=== PATIENT | male | born 1980 | race Caucasian/White ===

== ENCOUNTER 2017-02-10 06:23 | Emergency (ER) | payer OTHER ==
[~2017-02-10] VITALS: Ht 175.3 cm; Wt 71.6 kg
[2017-02-10 06:28] VITALS: Ht 175.3 cm; Wt 71.6 kg
[2017-02-10] MEDS ORDERED: DIAZEPAM 5MG TAB PO STA ×2 (06:33→11:03)
[2017-02-10] MEDS ORDERED: SODIUM CHLORIDE 0.9% 1000ML 1,000 ML IV STA (06:33)
[2017-02-10] MEDS ORDERED: ONDANSETRON INJ 2 MG/ML 2 ML VIAL IV STA (06:41)
[2017-02-10] MEDS ORDERED: MULTI-VITAMIN INFUSION INJ 10 ML, THIAMINE HCL INJ 100 MG, FoLIC ACID INJ 1 MG in SODIU... IV ONE (06:45)
[2017-02-10] MEDS ORDERED: PRLSR20 PO (06:46)
--- NOTE | 2017-02-10 06:49 | EMERGENCY ROOM VISIT NOTE ---
History Report prepared by Afsaneh: Rohan Matthew Under the Supervision of: Dr. Patience Marcum M.D. First contact with patient: 06:33 Chief Complaint: DETOX REQUEST Stated Complaint: ALCOHOL WITHDRAWAL History of Present Illness The patient is a diaphoretic 36 year old male who presents to the Emergency Room with complaints of a persistent alcohol withdrawal that started this morning. He says that he is not an alcoholic but usually drinks about a fifth on the days that he drinks. The patient states that he drinks most days, and his significant other agrees. The patient notes that when he does drink, he binges for a few days in a row. The patient says that he drank last night and then tried to have one drink a couple hours ago in order to calm his "heart down ". He says that the one drink this morning did not make him feel any better. The patient's significant other says that the patient vomited afterwards. The patient denies any recent illnesses. He says that he "does not want to go home and from alcohol withdrawal". He states that he uses marijuana but no other recreational drugs. Source of History: patient, spouse/significant other Onset: This morning Position: other (global - alcohol withdrawal) Symptom Intensity: usually drinks a fifth on days he drinks Timing: other (persistent) Associated Symptoms: + diaphoresis, + vomiting Note: Associated symptoms: Discomfort due to alcohol withdrawal. Denies recent illnesses. Review of Systems See HPI for pertinent positives & negatives. A total of 10 systems reviewed and were otherwise negative. Past Medical & Surgical Medical Problems: (1) Alcohol intoxication (2) Explosive personality disorder (3) GERD (gastroesophageal reflux disease) Surgical Problems: (1) S/P tonsillectomy Social History Problems: (1) Alcohol abuse Family History FH: diabetes mellitus FATHER Social History Smoking Status: Never Smoker Alcohol Use: heavy Drug Use: marijuana Marital Status: single Occupation Status: unemployed Current/Historical Medications Scheduled Omeprazole (Prilosec), 20 MG PO DAILY Allergies Coded Allergies: No Known Allergies (Unverified , 02/10/17) Physical Exam Vital Signs Date Time Temp Pulse Resp B/P (MAP) Pulse Ox O2 Delivery O2 Flow Rate FiO2 02/10/17 11:40 87 16 106/72 02/10/17 10:53 100 16 113/69 02/10/17 10:46 92 02/10/17 09:54 93 16 109/68 02/10/17 08:48 36.4 78 16 94/62 02/10/17 08:02 94 16 101/62 02/10/17 07:16 88 16 106/74 97 Room Air 02/10/17 06:49 35.6 02/10/17 06:44 91 02/10/17 06:28 115 18 109/66 95 Room Air Physical Exam Vital signs reviewed. General: Mildly hypotensive 36 year old male, who seems uncomfortable. HEENT: No scleral icterus, PERRLA, neck supple. Atraumatic. Cardiovascular: Regular rate and rhythm, no extra sounds. Pulmonary: Clear to auscultation bilaterally, normal work of breathing. Abdomen: Soft, nontender, nondistended, positive bowel sounds. Musculoskeletal: Atraumatic, no peripheral edema. Neurologic: Patient awake alert and oriented x 3, full strength in all 4 extremities. Cranial nerves 2 through 12 grossly intact. Skin: Diaphoretic and pale. Medical Decision & Procedures ER Provider Diagnostic Interpretation: X-ray results as stated below per interpretation by me and the radiologist: CHEST ONE VIEW PORTABLE CLINICAL HISTORY: 36 years-old Male presenting with sepsis. TECHNIQUE: Portable upright AP view of the chest was obtained. COMPARISON: None. FINDINGS: Cardiomediastinal silhouette normal. Lungs and pleural spaces clear. Osseous structures and upper abdomen normal. IMPRESSION: 1. No acute cardiopulmonary disease. Electronically signed by: Harmeet Quiroz M.D. 02/10/2017 8:17 AM Dictated Date/Time: 02/10/2017 8:14 AM Laboratory Results 02/10/17 06:50 Red Blood Count 5.10, Mean Corpuscular Volume 90.6, Mean Corpuscular Hemoglobin 30.4, Mean Corpuscular Hemoglobin Concent 33.5, Mean Platelet Volume 9.3, Neutrophils (%) (Auto) 56.0, Lymphocytes (%) (Auto) 35.8, Monocytes (%) (Auto) 5.3, Eosinophils (%) (Auto) 1.5, Basophils (%) (Auto) 0.8, Neutrophils # (Auto) 10.39, Lymphocytes # (Auto) 6.65, Monocytes # (Auto) 0.98, Eosinophils # (Auto) 0.28, Basophils # (Auto) 0.14 02/10/17 06:50 Test 8/3/17 06:50 02/10/17 08:10 02/10/17 10:26 White Blood Count 18.55 K/uL (4.8-10.8) Red Blood Count 5.10 M/uL (4.7-6.1) Hemoglobin 15.5 g/dL (14.0-18.0) Hematocrit 46.2 % (42-52) Mean Corpuscular Volume 90.6 fL (80-100) Mean Corpuscular Hemoglobin 30.4 pg (25-34) Mean Corpuscular Hemoglobin Concent 33.5 g/dl (32-36) Platelet Count 339 K/uL (130-400) Mean Platelet Volume 9.3 fL (7.4-10.4) Neutrophils (%) (Auto) 56.0 % Lymphocytes (%) (Auto) 35.8 % Monocytes (%) (Auto) 5.3 % Eosinophils (%) (Auto) 1.5 % Basophils (%) (Auto) 0.8 % Neutrophils # (Auto) 10.39 K/uL (1.4-6.5) Lymphocytes # (Auto) 6.65 K/uL (1.2-3.4) Monocytes # (Auto) 0.98 K/uL (0.11-0.59) Eosinophils # (Auto) 0.28 K/uL (0-0.5) Basophils # (Auto) 0.14 K/uL (0-0.2) RDW Standard Deviation 46.9 fL (36.4-46.3) RDW Coefficient of Variation 14.0 % (11.5-14.5) Immature Granulocyte % (Auto) 0.6 % Immature Granulocyte # (Auto) 0.11 K/uL (0.00-0.02) Echinocytes 1+ Prothrombin Time 10.4 SECONDS (9.0-12.0) Prothromb Time International Ratio 1.0 (0.9-1.1) Activated Partial Thromboplast Time 23.3 SECONDS (21.0-31.0) Partial Thromboplastin Ratio 0.9 Anion Gap 23.0 mmol/L (3-11) Est Creatinine Clear Calc Drug Dose 104.2 ml/min Estimated GFR () 113.9 Estimated GFR (Non- 98.3 BUN/Creatinine Ratio 12.9 (10-20) Calcium Level 9.3 mg/dl (8.5-10.1) Magnesium Level 2.1 mg/dl (1.8-2.4) Total Bilirubin 0.4 mg/dl (0.2-1) Direct Bilirubin 0.1 mg/dl (0-0.2) Aspartate Amino Transf (AST/SGOT) 24 U/L (15-37) Alanine Aminotransferase (ALT/SGPT) 21 U/L (12-78) Alkaline Phosphatase 76 U/L (45-117) Total Protein 7.9 gm/dl (6.4-8.2) Albumin 4.5 gm/dl (3.4-5.0) Lipase 139 U/L (73-393) Salicylates Level < 1.7 mg/dl (2.8-20) Acetaminophen Level < 2 ug/ml (10-30) Bedside Lactic Acid Venous 8.19 mmol/L (0.90-1.70) Ethyl Alcohol mg/dL 113.0 mg/dl (0-3) Laboratory results per my review. Medications Administered Medications (Trade) Dose Ordered Sig/Celsa Route Start Time Stop Time Status Last Admin Dose Admin Sodium Chloride 1,000 ml @ 999 mls/hr Q1H1M STAT IV 02/10/17 06:33 02/10/17 07:33 DC 02/10/17 07:14 999 MLS/HR Multivitamins 10 ml/Thiamine HCl 100 mg/Folic Acid 1 mg/Sodium Chloride 1,011.2 ml @ 300 mls/ hr Q3H23M ONCE IV 02/10/17 06:45 02/10/17 10:07 DC 02/10/17 07:14 300 MLS/HR Diazepam (Valium Tab) 10 mg NOW STAT PO 02/10/17 06:33 02/10/17 06:36 DC 02/10/17 07:13 10 MG Ondansetron HCl (Zofran Inj) 4 mg NOW STAT IV 02/10/17 06:41 02/10/17 06:42 DC 02/10/17 07:13 4 MG Potassium Chloride (Kcl 10 Meq / Wtr) 20 meq NOW STAT IV 02/10/17 08:01 02/10/17 08:02 DC 02/10/17 08:29 20 MEQ Pantoprazole Sodium 40 mg/ Syringe 10 ml @ 5 mls/min NOW ONCE IV 02/10/17 08:45 02/10/17 08:46 DC 02/10/17 10:45 5 MLS/MIN Piperacillin Sod/ Tazobactam Sod (Zosyn Iv) 4.5 gm NOW STAT IV 02/10/17 08:53 02/10/17 08:54 DC 02/10/17 10:53 4.5 GM Diazepam (Valium Tab) 5 mg NOW STAT PO 02/10/17 11:03 02/10/17 11:04 DC 02/10/17 11:18 5 MG ECG Indication: vomiting Rate (beats per minute): 80 Rhythm: normal sinus Findings: no acute ischemic change, no ectopy, other (prolonged QT interval 482 ) ED Course 0633: Valium Tab 10 mg PO, NSS 1000 ml @ 999 mls/hr IV. 0635: Past medical records reviewed. The patient was evaluated in room A2. A complete history and physical examination was performed. 0641: Zofran Inj 4 mg IV. 0645: Multivitamins 10 ml/Thiamine HCl 100 mg/Folic Acid 1 mg/Sodium Chloride 1, 011.2 ml @ 300 mls/hr IV. 0757: I reevaluated and updated the patient. 0801: Ordered Kcl 10 Meq / Wtr 20 meq IV. 0845: Ordered Pantoprazole Sodium 40 mg/Syringe 10 ml @ 5 mls/min IV. 0853: Ordered Zosyn IV 4.5 gm IV. 0859: I discussed the patient with Dr. Mike Lugo blanket binder - he will evaluate the patient for further treatment. 0932: I reevaluated the patient and he says that he is signing out as soon as his blood alcohol is low. The patient will be observed until his alcohol is less than 100. He will at that time sign out against medical advice. 1100: The patient asked for more medication to calm his nerves. 1103: Ordered Valium Tab 5 mg PO. 1132: Ordered Klor-Con M10 40 meq PO. 1135: I reevaluated the patient and he is resting. The patient verbally expressed understanding and agreement with the treatment plan. The patient will be discharged. Medical Decision Differentials include but are not limited to: alcohol withdrawal, sepsis, dehydration, metabolic abnormality, substance abuse, pneumonia, aspiration, viral illness. This patient was evaluated and appeared to be in no significant distress. IV access was obtained and laboratory work was drawn. The patient was placed on quality assurance monitor. He was hydrated with normal saline solution. The patient was given 10 mg of oral Valium and a banana bag was initiated. Patient is found to be hypotensive. His white blood cell count is 18,000. Blood cultures and lactic acid were performed. The initial lactate was greater than 10, it was repeated. The repeat lactate is 8. Patient was started on Zosyn 4.5 g IV. He denies any issues with alcohol dependency. He states his heart races on the days that he "does not drink." He also states that it is impossible that his blood alcohol level is 190. He states he has not had anything to drink since last night. The patient initially stated that he did not want to go home, he was afraid of dying. He now states, after consulting the hospitalist service, that he feels better. He is confident that he will not . After reviewing his hypokalemia, lactic acidosis, hypotension and alcohol dependency, the patient insisted on signing out AGAINST MEDICAL ADVICE. A repeat alcohol level was obtained and the patient was held until he was at least 100. He does appear to be clinically sober and able to make informed decisions. He requested something to "calm his nerves" and was given 5 mg of oral Valium. He denies wanting to become sober long-term. I do not feel comfortable prescribing benzodiazepines as I think he is high risk to drink again. Case management has not with the patient and given outpatient alcohol referrals however he states this is a "waste of time." He also states he will "go home, smoke weed, go to sleep and wake up fine." The patient was encouraged to return to the ER if symptoms persist or worsen. He was also encouraged to speak with a primary care physician. Medication Reconcilliation Current Medication List: was personally reviewed by me Blood Pressure Screening Patient's blood pressure: Normal blood pressure Consults Time Called: 08 Consulting Physician: Dr. Mike Lugo blanket binder Returned Call: [phone] I discussed the patient with Dr. Mike Lugo blanket binder - he will evaluate the patient for further treatment. Impression Primary Impression: Alcohol withdrawal Additional Impressions: Lactic acidosis Alcohol intoxication Hypothermia Left against medical advice Critical Care I have personally spent greater than 30 minutes of critical care time in the direct management of this patient. This includes bedside care, interpretation of diagnostic studies, and testing, discussion with consultants, patient, and family members, and other required patient management activities. This 30 minutes is in excess of all separately billable procedures. Scribe Attestation The scribe's documentation has been prepared under my direction and personally reviewed by me in its entirety. I confirm that the note above accurately reflects all work, treatment, procedures, and medical decision making performed by me. Departure Information Dispostion Home / Self-Care Referrals No Doctor, Assigned (PCP) Patient Instructions Alcohol Withdrawal - [facility], Alcoholism Get Help, ED Diet High Potassium, My [facility] Additional Instructions Diagnosis: Alcohol withdrawal, alcohol dependency, hypothermia, low potassium Please alcohol dependency resources as provided by case management. Eat a diet high in potassium (bananas and potatoes) Drink plenty of clear fluids. Please return to the emergency department for any medical concerns. Return to the emergency department for worsening of symptoms. Problem Qualifiers Primary Impression: Alcohol withdrawal Complication of substance-induced condition: with unspecified complication Qualified Codes: F10.239 - Alcohol dependence with withdrawal, unspecified Additional Impressions: Alcohol intoxication Complication of substance-induced condition: with unspecified complication Qualified Codes: F10.929 - Alcohol use, unspecified with intoxication, unspecified Hypothermia Encounter type: initial encounter Qualified Codes: T68.XXXA - Hypothermia, initial encounter
[2017-02-10 07:06] LABS: HEMATOCRIT 46.2 % (42-52); MEAN CELL VOLUME 90.6 fL (80-100); MEAN CORPUSCULAR HEMOGLOBIN 30.4 pg (25-34); MEAN CORPUSCULAR HGB CONC 33.5 g/dl (32-36); MEAN PLATELET VOLUME 9.3 fL (7.4-10.4); PLATELET COUNT 339 K/uL (130-400); WHITE BLOOD COUNT 18.55 K/uL (4.8-10.8)
[2017-02-10 07:14] LABS: PARTIAL THROMBOPLASTIN RATIO 0.9; PROTHROMBIN TIME (PATIENT) 10.4 SECONDS (9.0-12.0)
[2017-02-10 07:16] VITALS: O2SAT 97
[2017-02-10 07:24] LABS: BUN/CREATININE RATIO 12.9 (10-20); CALCIUM 9.3 mg/dl (8.5-10.1); CREATININE 0.99 mg/dl (0.60-1.40); POTASSIUM 2.7 mmol/L (3.5-5.1)
[2017-02-10 07:35] LABS: ACETAMINOPHEN < 2 ug/ml (10-30)
[2017-02-10 07:51] LABS: BASO % 0.8 %; BASO ABS # 0.14 K/uL (0-0.2); COMPLETE YES; ECHINOCYTES 1+; EOS % 1.5 %; IG% 0.6 %; LYMPH % 35.8 %; LYMPH ABS # 6.65 K/uL (1.2-3.4); MONO % 5.3 %
[2017-02-10] MEDS ORDERED: POTASSIUM CHLORIDE 10 MEQ / 100ML WTR IV STA (08:01)
--- NOTE | 2017-02-10 08:18 | DIAGNOSTIC IMAGING REPORT ---
CHEST ONE VIEW PORTABLE CLINICAL HISTORY: 36 years-old Male presenting with sepsis. TECHNIQUE: Portable upright AP view of the chest was obtained. COMPARISON: None. FINDINGS: Cardiomediastinal silhouette normal. Lungs and pleural spaces clear. Osseous structures and upper abdomen normal. IMPRESSION: 1. No acute cardiopulmonary disease. Electronically signed by: Harmeet Quiroz M.D. 02/10/2017 8:17 AM Dictated Date/Time: 02/10/2017 8:14 AM
[2017-02-10] MEDS ORDERED: PANTOprazole INJ 40 MG in SYRINGE 0 ML IV ONE (08:45)
[2017-02-10 08:48] VITALS: TEMP 36.4
[2017-02-10] MEDS ORDERED: PIPERACILLIN/TAZOBACTAM 4.5 GM/100ML D5W IV STA (08:53)
[2017-02-10] MEDS ORDERED: IV FLUIDS COMPLETED PRN ×2 (10:00→13:45)
[2017-02-10] MEDS ORDERED: POTASSIUM CHLORIDE 10 MEQ TABCR PO STA (11:32)
[2017-02-10 11:40] VITALS: BP 106/72; PULSE 87
== END 2017-02-10 11:45 | disposition left against medical advice (07) ==
LOC: C.EDB 06:26 → EDBEDREQ 09:25 → C.EDA 11:45 → CANBEDREQ 13:57
DX: F10.239 Alcohol dependence with withdrawal, unspecified (principal); E87.2 Acidosis; F10.229 Alcohol dependence with intoxication, unspecified; T68.XXXA Hypothermia, initial encounter; X58.XXXA Exposure to other specified factors, initial encounter; E87.6 Hypokalemia; F12.10 Cannabis abuse, uncomplicated; F60.3 Borderline personality disorder; K21.9 Gastro-esophageal reflux disease without esophagitis